=== PATIENT | female | born 1970 | race Native Hawaiian/Other Pacific Islander ===

== ENCOUNTER 2017-10-18 14:08 | Emergency (ER) | payer OTHER ==
[~2017-10-18] VITALS: Ht 170.2 cm; Wt 61.2 kg
[2017-10-18 14:15] VITALS: TEMP 98.1
[2017-10-18 15:52] LABS: PLATELET COUNT 320 K/uL (152-353)
[2017-10-18 15:57] LABS: POTASSIUM 4.2 mmol/L (3.6-5.2)
[2017-10-18 16:20] VITALS: BP 110/66
== END 2017-10-18 16:17 | disposition home or self-care (01) ==
LOC: ED 14:08
DX: J34.0 Abscess, furuncle and carbuncle of nose (principal); H05.223 Edema of bilateral orbit
CPT/HCPCS: 36415; 80053; 85027; 96365; 99284; J0696

== ENCOUNTER 2018-10-08 09:25 | Emergency (ER) | payer OTHER ==
[~2018-10-08] VITALS: Ht 170.2 cm; Wt 63.5 kg
[2018-10-08 10:10] LABS: PLATELET COUNT 327 K/uL (152-353)
[2018-10-08 10:27] LABS: PARTIAL THROMBOPLASTIN TIME 27.2 SECONDS (24.5-33.6)
[2018-10-08 10:43] LABS: POTASSIUM 4.6 mmol/L (3.6-5.2); SODIUM 138 mmol/L (136-145)
[2018-10-08 13:55] VITALS: BP 100/39; TEMP 98.2
== END 2018-10-08 14:15 | disposition home or self-care (01) ==
LOC: ED 09:25
PROVIDERS: Student in an Organized Health Care Education/Training Program
DX: R07.89 Other chest pain (principal)
CPT/HCPCS: 36415; 80048; 81000; 83735; 83880; 84484; 85027; 85610; 85730; 93005; 99284; Q9963

== ENCOUNTER 2019-04-18 13:19 | Outpatient (CLI) | payer OTHER | END 2019-04-18 23:06 | disposition home or self-care (01) | LOC: MAMMO 13:19 | DX: Z12.31 Encounter for screening mammogram for malignant neoplasm of breast (principal) ==

== ENCOUNTER 2019-06-10 22:57 | Emergency (ER) | payer OTHER ==
[~2019-06-10] VITALS: Ht 170.2 cm; Wt 65.8 kg
[2019-06-10 23:34] LABS: PLATELET COUNT 342 K/uL (152-353)
[2019-06-10 23:49] LABS: POTASSIUM 4.2 mmol/L (3.6-5.2); SODIUM 143 mmol/L (136-145)
[2019-06-11 00:14] LABS: PARTIAL THROMBOPLASTIN TIME 25.7 SECONDS (24.5-33.6)
[2019-06-11 03:15] VITALS: BP 102/52; TEMP 97.8
== END 2019-06-11 03:15 | disposition home or self-care (01) ==
LOC: ED 22:57
PROVIDERS: Student in an Organized Health Care Education/Training Program
DX: R07.89 Other chest pain (principal); R00.1 Bradycardia, unspecified
CPT/HCPCS: 36415; 80048; 83735; 83880; 84484; 85027; 85610; 85730; 87502; 93005; 96374; 96375; 99284; J1885; J2270; J2405

== ENCOUNTER 2019-06-19 12:29 | Outpatient (CLI) | payer OTHER ==
[2019-06-19 13:02] LABS: POTASSIUM 4.5 mmol/L (3.6-5.2); SODIUM 140 mmol/L (136-145)
[2019-06-19 13:06] LABS: PLATELET COUNT 320 K/uL (152-353)
== END 2019-06-19 19:30 | disposition home or self-care (01) ==
LOC: LABW 12:29
PROVIDERS: Nurse Practitioner Family
DX: R06.00 Dyspnea, unspecified (principal); R07.9 Chest pain, unspecified; R00.2 Palpitations
CPT/HCPCS: 36415; 80053; 82550; 84443; 84484; 85027

== ENCOUNTER 2020-04-21 13:01 | Outpatient (CLI) | payer OTHER ==
[2020-04-21 13:48] LABS: PLATELET COUNT 283 K/uL (152-353)
[2020-04-21 14:30] LABS: POTASSIUM 4.4 mmol/L (3.6-5.2)
== END 2020-04-21 21:35 | disposition home or self-care (01) ==
LOC: LABW 13:01 → MAMMO 13:01
PROVIDERS: ATTEND Family Medicine
DX: Z12.31 Encounter for screening mammogram for malignant neoplasm of breast (principal); R10.32 Left lower quadrant pain
CPT/HCPCS: 36415; 80053; 85027; 86140

== ENCOUNTER 2021-01-11 16:51 | Outpatient (CLI) | payer OTHER | END 2021-01-11 20:09 | disposition home or self-care (01) | LOC: RAD 16:51 → EDSTATUS 16:51 → RAD 20:09 | PROVIDERS: ATTEND Nurse Practitioner Family | DX: J44.1 Chronic obstructive pulmonary disease with (acute) exacerbation (principal); R09.02 Hypoxemia; R06.02 Shortness of breath ==

== ENCOUNTER 2021-01-19 07:39 | Outpatient (CLI) | payer OTHER | END 2021-01-19 20:01 | disposition home or self-care (01) | LOC: CT 07:39 | PROVIDERS: ATTEND Nurse Practitioner Family | DX: J44.1 Chronic obstructive pulmonary disease with (acute) exacerbation (principal); R09.02 Hypoxemia; R06.02 Shortness of breath | CPT/HCPCS: 36415; 82565; 84520; Q9963 ==

== ENCOUNTER 2021-06-29 12:46 | Outpatient (CLI) | payer OTHER | END 2021-06-29 19:12 | disposition home or self-care (01) | LOC: CT 12:46 | PROVIDERS: ATTEND Internal Medicine Critical Care Medicine | DX: R93.89 Abnormal findings on diagnostic imaging of other specified body structures (principal) ==

== ENCOUNTER 2022-01-07 13:08 | Outpatient (CLI) | payer OTHER | END 2022-01-07 20:33 | disposition home or self-care (01) | LOC: CT 13:08 | PROVIDERS: ATTEND Internal Medicine Critical Care Medicine | DX: R93.89 Abnormal findings on diagnostic imaging of other specified body structures (principal) ==

== ENCOUNTER 2022-02-16 09:19 | Outpatient (CLI) | payer OTHER | END 2022-02-16 19:18 | disposition home or self-care (01) | LOC: MAMMO 09:19 | PROVIDERS: ATTEND Nurse Practitioner | DX: Z12.31 Encounter for screening mammogram for malignant neoplasm of breast (principal) ==

== ENCOUNTER 2022-04-22 12:14 | Outpatient (CLI) | payer OTHER | END 2022-04-22 19:31 | disposition home or self-care (01) | LOC: US 12:14 | PROVIDERS: ATTEND Nurse Practitioner | DX: N63.32 Unspecified lump in axillary tail of the left breast (principal) ==

== ENCOUNTER 2023-05-12 12:38 | Outpatient (CLI) | payer OTHER | END 2023-05-12 20:08 | disposition home or self-care (01) | LOC: CT 12:38 | PROVIDERS: ATTEND Nurse Practitioner Family | DX: R91.1 Solitary pulmonary nodule (principal); Z12.31 Encounter for screening mammogram for malignant neoplasm of breast | CPT/HCPCS: 36415; 82565; 84520; Q9963 ==